=== PATIENT | male | born 1980 | race Caucasian/White ===

== ENCOUNTER 2017-06-06 10:40 | Emergency (ER) | payer OTHER ==
[~2017-06-06] VITALS: Ht 182.9 cm; Wt 84.1 kg
[~2017-06-06 10:40] MED LIST: BACL10TA PO; CYCL5TAB PO; HYDR-4003 PO
[2017-06-06 10:51] VITALS: BP 119/73; PULSE 82; RESP 20; O2SAT 99
--- NOTE | 2017-06-06 11:06 | ED.REPORT ---
HPI-General Illness Date of Service Jun 06, 2017 ED Provider: Doc,Ed MD Patient is a 36 year old male with a hx of multiple neck and spine surgeries who presents to the ED c/o neck pain at his onset 3 days ago. He contacted his surgeon (Dr. Rocha at [facility]) and was told to come to the ED. Associated symptoms include "grinding" with movement. He denies extremity numbness, weakness, or tingling, bowel or bladder incontinence, fever, or any other symptoms. He denies a mechanism of injury. His last surgery was on 05/02/17. At 0600 he took Oxycodone 5mg, Tylenol 1000mg, tinazadine, and gabapentin Nursing Notes Stated Complaint: SURGICAL COMPLICATIONS Chief Complaint: Back Pain or Injury Nursing Notes Reviewed: Yes Allergies: Coded Allergies: No Known Allergies (Unverified , 07/06/16) Scheduled Baclofen (Baclofen) 10 Mg Tablet 10 MG PO BID Scheduled PRN Cyclobenzaprine (Cyclobenzaprine) 5 Mg Tablet 5 MG PO TID PRN PRN Spasm Hydrocodone-Acetaminophen 5-325 mg (Hydrocodone-Acetaminophen 5-325 mg) 1 Each Tablet 1 TABLET PO Q6H PRN PRN For Pain General Time Seen by MD: 11:05 Chief Complaint Other (Neck pain ) Hx Obtained From: Patient Arrived By: Walk-in Sudden in Onset?: Yes Onset Occurred: 3 days ago Symptom Duration: Since onset Location: : Neck Quality: Painful Pertinent Negative: Pt denies other symptoms Exacerbated by: Moving affected area Recent Healthcare: Previous surgery Similar Sx Previous: No Past Medical History Past Medical History history of spinal stenosis and bulging discs s/p cervical spine surgery Past Surgical History cervical spine surgery - extensive with rods and screws in place Smoking History Current Every Day Smoker Social History Alcohol Use: "Social" Other Social History: Good social support, , Local resident Ambulatory Status Independent Review of Systems -tingling Full Review of Systems Constitutional: Denies: Fever Male: Denies Incontinence Musculoskeletal: Reports: Neck pain Neurologic: Denies: Bladder dysfunction, Bowel dysfunction, Focal weakness, Numbness Complete sys rev & neg: except as marked. Physical Exam Vital Signs Vital Signs Date Time Temp Pulse Resp B/P Pulse Ox O2 Delivery O2 Flow Rate FiO2 06/06/17 10:51 36.6 82 20 119/73 99 Room Air Initial VS: Reviewed, Vital signs normal Head / Eyes: Atraumatic, Normocephalic Respiratory: No respiratory distress Skin: Warm, Dry Neurologic: Alert, Oriented, Nonfocal Psychiatric: Mood/affect normal, Behavior normal, Normal thought content General/Constitutional: Awake, Alert Neck: No swelling Limited ROM tenderness in trapezius region lateral to C7 & T1-3 area point tenderness elicited with raising R arm and moving neck well healing midline incision. Upper Extremities Upper Extremity / MS: Neurologic intact, Vascular intact Lower Extremity / Pelvis / MS: Neurologic intact, Vascular intact Re-Eval/Medical Decision Consultation : Call Returned at: 11:57 Network Contractor: Will see in office Note: Discusseed pt's case with Dr. Filipe Vernon at [facility] [place]. Will F/u with pt in clinic tomorrow morning at 10 am. Discharge & Departure Primary Impression: Acute cervical myofascial strain Encounter type: initial encounter Qualified Code: S16.1XXA - Strain of muscle, fascia and tendon at neck level, initial encounter Disposition: Home Patient Instructions: Acute Neck Pain (ED) Additional Instructions: No dangerous nerve impingement is suspected at this time. I spoke to Dr. Vernon at [facility] who said that they will see you at the clinic tomorrow morning. Please arrive at about 10 AM. Referrals: Heather Kuaffman DO (PCP) [place] Attestation Portions of this note were transcribed by Lenin Trinidad. I, Dr. Cain personally performed the history, physical exam and medical decision-making; I reviewed and confirmed the accuracy of the information in the transcribed note. Signed by: Harjit Macario, 06/06/17 copies to: Heather Kauffman Kirk H MD Jun 06, 2017 11:06 LENIN TRINIDAD Jun 06, 2017 11:18
== END 2017-06-06 12:24 | disposition home or self-care (01) ==
LOC: SED 10:40
DX: S16.1XXA Strain of muscle, fascia and tendon at neck level, initial encounter (principal); Y83.8 Other surgical procedures as the cause of abnormal reaction of the patient, or of later complication, without mention of misadventure at the time of the procedure; Y92.9 Unspecified place or not applicable; Y99.8 Other external cause status; F17.200 Nicotine dependence, unspecified, uncomplicated; Z98.890 Other specified postprocedural states